=== PATIENT | male | born 1970 | race African-American/Black ===

== ENCOUNTER 2021-09-24 19:24 | Emergency (ER) | payer MEDICARE, SELFPAY ==
--- NOTE | ~2021-09-24 | CT_ITS ---
EXAMINATION: CT abdomen pelvis w con DATE: 09/24/2021 21:50 INDICATION: Right upper quadrant abdominal pain, bloating. Weight loss. TECHNIQUE: Computed tomography (CT) of the abdomen and pelvis was performed with 100 CC Omnipaque 350 intravenous contrast. Automated exposure control and iterative reconstruction technique were employe d. Exam dose: 237.87 mGy-cm total exam DLP. COMPARISON: None. FINDINGS: The lung bases are clear. Normal heart size. No pericardial or pleural effusion. Small sliding hiatal hernia. Diffuse hepatic steatosis. No hepatic, splenic, pancreatic, and adrenal or renal space-occupying mass lesion. Normal caliber of the abdominal aorta. No intraperitoneal or retroperitoneal or pelvic mass lesion or adenopathy or ascites. The urinary bladder, prostate gland and seminal vesicles are unremarkable. Normal appendix. Diverticulosis of left and especially right colon; no CT evidence of diverticulitis. No bowel obstruc tion, bowel wall thickening, pneumatosis or intraperitoneal free air. Small fat-containing right inguinal hernia. Multilevel degenerative disc disease of the lumbar and lumbosacral spine. Diffuse idiopathic skeletal hyperostosis of the thoracic spine IMPRESSION: Diverticulosis of the left and particularly right colon; no CT evidence of diverticuliti s Normal appendix Small sliding hiatal hernia Small fat-containing right inguinal hernia Hepatic steatosis Reviewed, dictated and finalized at [facility]. Reviewed, dictated and finalized at [facility] IMPRESSION: Diverticulosis of the left and particularly right colon; no CT jesse dence of diverticulitis Normal appendix Small sliding hiatal hernia Small fat-containing right inguinal hernia Hepatic steatosis
[2021-09-24 19:32] VITALS: BP 194/101; PULSE 76; RESP 18; TEMP 36.9; O2SAT 100
[2021-09-24 20:02] LABS: Basophils Percent Auto 0.5 % (0.2-1.2); Eosinophils Absolute Auto 0.2 K/mm3 (0-0.3); Hematocrit 42.2 % (42.0-52.0); Hemoglobin 13.4 g/dL (14.0-18.0); Immature Granulocyte Absolute 0.02 K/mm3 (0.00-0.031); Immature Granulocyte Percent A 0.2 % (0-0.5); Mean Corpuscular HGB Conc 31.8 g/dl (32-36); Mean Corpuscular Volume 88.3 fl (80-100); Mean Platelet Volume 9.5 fl (7.4-10.4); Monocytes Absolute Auto 0.6 K/mm3 (0.1-0.6); Monocytes Percent Auto 7.6 % (2.6-8.5); Neutrophils Percent Auto 70.7 % (45.5-73.1); Platelet Count Result 203 k/mm3 (150-375); Red Blood Count 4.78 M/mm3 (4.6-6.20); Red Cell Distribution Width 13.6 % (11.5-14.5); White Blood Count 8.4 K/mm3 (4.5-10.0)
[2021-09-24 20:15] LABS: Alanine Aminotransferase 22 U/L (4-50); Albumin Level 4.2 g/dL (3.5-5.1); Alkaline Phosphatase 62 U/L (38-126); Anion Gap 5 mmol/L (8-16); Aspartate Amino Transferase 38 U/L (17-59); Bilirubin,Total 0.4 mg/dL (0.2-1.3); Blood Urea Nitrogen 19 mg/dL (9-20); Calcium 9.3 mg/dL (8.4-10.2); Carbon Dioxide 31 mmol/L (22-30); Chloride 103 mmol/L (98-107); Estimated CRCL calculation 57 ml/min; Estimated Glomerular Filt Rate > 60; Glucose 99 mg/dL (65-110); Lipase 262 U/L (23-300); Potassium 3.8 mmol/L (3.4-5.0); Sodium 139 mmol/L (137-145)
--- NOTE | 2021-09-24 20:49 | ED.ABDPAIN ---
HPI - Abdominal Pain General Chief Complaint: Abdominal Pain <YAYA Marinelli Last Filed: 09/25/21 00:46> Stated Complaint: abdominal pain <YAYA Marinelli Last Filed: 09/25/21 00:46> Time Seen by Provider: 09/24/21 20:46 <YAYA Marinelli Last Filed: 09/25/21 00:46> Source: patient <YAYA Marinelli Last Filed: 09/25/21 00:46> Mode of arrival: ambulatory <YAYA Marinelli Last Filed: 09/25/21 00:46> Limitations: no limitations <YAYA Marinelli Last Filed: 09/25/21 00:46> History of Present Illness HPI narrative: Patient is a 50-year-old male who presents to the ED with report of abdominal bloating. Patient reports having bloating and intermittent burning right upper quadrant pain since Tuesday. He reports recent constipation after a few days of intermittent diarrhea. He did have a bowel movement prior to arrival to the ED tonight and reports his abdominal bloating feels better currently in the ED bed He did take Gas-X prior to arrival. No blood in the stool. Patient also mentions he feels like he has been losing weight lately. He states his clothes felt like they fit differently one day last week. Has not weighed himself. No fever, chills, nausea, vomiting, night sweats, cough, shortness of breath, chest pain, urinary sx's, back pain, weakness. Patient has a history of ETOH use and has not drank since Tuesday. He denies ever having withdrawal symptoms before. <YAYA Marinelli Last Filed: 09/25/21 00:46> Related Data Allergies/Adverse Reactions: Allergies Allergy/AdvReac Type Severity Reaction Status Date / Time No Known Allergies Allergy Unverified 02/10/17 08:22 <YAYA Marinelli Last Filed: 09/25/21 00:46> Review of Systems Review of Systems: CONSTITUTIONAL: Reports possible weight loss. Denies fever, chills, or night sweats. CARDIOVASCULAR: Denies chest pain. RESPIRATORY: Denies cough, hemoptysis, dyspnea. GASTROINTESTINAL: Reports abdominal bloating, burning RUQ pain, recent constipation. Denies nausea, vomiting, rectal bleeding, or diarrhea. GENITOURINARY: Denies dysuria or hematuria. MUSCULOSKELETAL: Denies back pain. NEUROLOGIC: Denies headache, numbness, or weakness. <Betty Monte PA-C - Last Filed: 09/25/21 00:46> All systems reviewed & are unremarkable except as noted in HPI and below <Betty Monte PA-C - Last Filed: 09/25/21 00:46> PMFSH Past Medical History Medical History: Medical History Hypertension Inguinal hernia <Betty Monte PA-C - Last Filed: 09/25/21 00:46> Surgical History Surgical History: Surgical History Hx of colonoscopy <Betty Monte PA-C - Last Filed: 09/25/21 00:46> Social History Social History: Social History (Updated 09/25/21 @ 00:40 by Betty Monte PA-C) Smoking status: Never smoker Alcohol intake: current Substance use type: marijuana <Betty Monte PA-C - Last Filed: 09/25/21 00:46> Exam Narrative: GENERAL: Well appearing, well-nourished, non-toxic, in no acute distress. HEAD: Normocephalic, atraumatic. NECK: Supple. No adenopathy, no masses. RESPIRATORY: Airway patent, respirations nonlabored. Clear to auscultation bilaterally, no rales, rhonchi, wheezing. CARDIOVASCULAR: Regular rate and rhythm without murmurs, rubs, or gallops. Peripheral pulses 2+ and equal bilaterally. ABDOMINAL: Soft, no significant tenderness to palpation, nondistended, no hepatosplenomegaly. Normoactive BS. MUSCULOSKELETAL: Moves all extremities. Strength/ROM intact without gross deformities or TTP. SKIN: Warm, dry, normal color. No rashes. NEURO: A&O X3. Speech clear. Cranial nerves II-XII grossly intact. Steady gait. No ataxic movements. PSYCHIATRIC: Appropriate mood and affect. Normal interaction. <Betty Monte PA-C - Last Filed: 09/25/21 00:
[2021-09-24 21:14] LABS: Appearance Urine Clear (Clear); Bilirubin Urine Negative (Negative); Blood Urine Negative (Negative); Color Urine Yellow (Yellow); Glucose Urine UA Negative (Negative); Ketones Urine Negative (Negative); Leukocyte Esterase Ur Negative LEU/UL (Negative); Nitrate Urine Negative (Negative); Protein Urine Negative (Negative); Specific Grav Ur 1.015 (1.001-1.035); Urobilinogen Urine 0.2 mg/dL (<2.0)
[2021-09-24 21:16] LABS: Add Urine Microscopic? NO; WBC Urine 0-3 /hpf
[2021-09-24 21:17] LABS: RBC Urine None seen /hpf (0-2)
[2021-09-24 22:02] VITALS: BP 183/108; PULSE 72; RESP 18; O2SAT 100
[2021-09-24] MEDS: SODIUM CHLORIDE 0.9% IV 1,000 ML 999 ML IV CONT (22:04)
[2021-09-24 23:21] VITALS: BP 172/98; PULSE 71; RESP 18; O2SAT 100
== END 2021-09-24 23:22 | disposition home or self-care (01) ==
PROVIDERS: Emergency Provider Emergency Medicine; PCP Internal Medicine
DX: K59.00 Constipation, unspecified (principal); I10 Essential (primary) hypertension; K57.90 Diverticulosis of intestine, part unspecified, without perforation or abscess without bleeding; K44.9 Diaphragmatic hernia without obstruction or gangrene; K40.90 Unilateral inguinal hernia, without obstruction or gangrene, not specified as recurrent; K76.0 Fatty (change of) liver, not elsewhere classified
CPT/HCPCS: 36415; 74177; 80053; 81003; 83690; 85025; 96360; 99284; J7030; Q9967

== ENCOUNTER 2021-10-23 12:34 | Emergency (ER) | payer MEDICARE, SELFPAY ==
[2021-10-23 12:52] VITALS: BP 197/115; PULSE 85; RESP 16; TEMP 36.6; O2SAT 100
[2021-10-23 13:46] LABS: Appearance Urine Clear (Clear); Bilirubin Urine Negative (Negative); Blood Urine Negative (Negative); Glucose Urine UA Negative (Negative); Ketones Urine Negative (Negative); Leukocyte Esterase Ur Negative LEU/UL (Negative); Nitrate Urine Negative (Negative); Protein Urine Negative (Negative); Specific Grav Ur <= 1.005 (1.001-1.035); Urobilinogen Urine 0.2 mg/dL (<2.0)
[2021-10-23 14:01] LABS: Add Urine Microscopic? NO; Color Urine Colorless (Yellow)
[2021-10-23 14:09] LABS: RBC Urine 0-2 /hpf (0-2); WBC Urine 0-3 /hpf
--- NOTE | 2021-10-23 14:10 | ED.MALEGU ---
HPI - Male Genitourinary General Chief complaint: Urogenital-Male Stated complaint: urine is not feeling well Time Seen by Provider: 10/23/21 13:01 History of Present Illness HPI Narrative: 50-year-old male presents the emergency room with complaints of dysuria for approximately 1 week. Patient denies any suprapubic pain or lower back pain. Patient denies any concerns or STIs. Denies fever. Related Data Allergies Allergy/AdvReac Type Severity Reaction Status Date / Time No Known Allergies Allergy Unverified 02/10/17 08:22 Review of Systems Review of Systems: CONSTITUTIONAL: Denies fever, chills, or sweats. EYES: Denies visual changes, redness, or discharge. ENT: Denies rhinorrhea, congestion, sore throat, or otalgia. CARDIOVASCULAR: Denies chest pain, palpitations, or edema. RESPIRATORY: Denies cough or dyspnea. GASTROINTESTINAL: Denies abdominal pain, nausea, vomiting, or diarrhea. GENITOURINARY: Reports dysuria SKIN: Denies rash or itching. MUSCULOSKELETAL: Denies back pain, joint pain, or myalgia. NEUROLOGIC: Denies headache, numbness, dizziness, or weakness. PSYCHIATRIC: Denies anxiety or depression. [facility] Past Medical History Medical History Hypertension Inguinal hernia Surgical History Surgical History Hx of colonoscopy Social History Social History Smoking status: Never smoker Alcohol intake: current Substance use type: marijuana Exam Narrative: GENERAL: Well-appearing, well-nourished, and in no acute distress. HEAD: Normocephalic, atraumatic. EYES: PERRLA and EOMI. CHEST: Clear to auscultation. No respiratory distress. No wheezes rales or rhonchi HEART: Regular rate and rhythm. No murmur heard. Normal peripheral pulses. ABDOMEN: Soft, nontender, nondistended, normal active bowel sounds. : Defers EXTREMITIES: Normal range of motion. No edema. SKIN: Warm, dry, no rash. NEURO: No focal deficits. Alert and oriented x3. PSYCH: Normal mood and affect. Course Vital Signs Vital signs: Vital Signs Temperature 36.6 C 10/23/21 12:52 Pulse Rate 85 10/23/21 12:52 Respiratory Rate 16 10/23/21 12:52 Blood Pressure 197/115 H 10/23/21 12:52 Pulse Oximetry 100 10/23/21 12:52 Temperature 36.6 C 10/23/21 12:52 Pulse Rate 85 10/23/21 12:52 Respiratory Rate 16 10/23/21 12:52 Blood Pressure 197/115 H 10/23/21 12:52 Pulse Oximetry 100 10/23/21 12:52 MDM - Male Genitourinary Lab Data Labs: Lab Results 10/23/21 Range/Units 13:21 Urine Color Colorless (Yellow) Urine Appearance Clear (Clear) Urine pH 6.0 (5.0-9.0) Ur Specific [place] <= 1.005 (1.001-1.035) Urine Protein Negative (Negative) mg/dL Urine Glucose (UA) Negative (Negative) mg/dL Urine Ketones Negative (Negative) mg/dL Ur Blood (Man) Negative (Negative) Urine Nitrate Negative (Negative) Urine Bilirubin Negative (Negative) Urine Urobilinogen 0.2 (<2.0) mg/dL Leukocyte Esterase Rfl Negative (Negative) CAROLIN/UL Urine RBC 0-2 (0-2) /hpf Urine WBC 0-3 /hpf Discharge Plan Discharge Clinical Impression: Dysuria Patient Disposition: Home, Self-Care Condition: Stable Instructions: Antibiotic Form Prescriptions: New doxycycline monohydrate 100 mg capsule 100 mg PO BID 10 Days Qty: 20 RF: 0 Follow-up/Referrals: Adeline,Eva Bergman MD [Primary Care Provider] - Time of Disposition: 14:14
== END 2021-10-23 14:26 | disposition home or self-care (01) ==
PROVIDERS: Emergency Medicine; Emergency Provider Nurse Practitioner Family; PCP Internal Medicine
DX: R30.0 Dysuria (principal); I10 Essential (primary) hypertension
CPT/HCPCS: 81003; 99283

== ENCOUNTER 2024-04-03 13:17 | Outpatient (CLI) | payer MEDICARE, SELFPAY | END 2024-04-03 13:18 | disposition home or self-care (01) | LOC: ANHAUDIO 13:18 | PROVIDERS: PCP Internal Medicine; Visit Provider Otolaryngology | DX: H90.3 Sensorineural hearing loss, bilateral (principal) | CPT/HCPCS: 92557; 92567 ==